=== PATIENT | female | born 1960 | race Two or more races ===

== ENCOUNTER 2017-10-11 18:20 | Emergency (ER) | payer OTHER ==
[2017-10-11] MEDS ORDERED: HALOPERIDOL 5 MG/ML IM PRN (18:30)
[2017-10-11] MEDS ORDERED: HALOPERIDOL 5 MG/ML IV ONE (18:30)
[2017-10-11 18:41] LABS: HEMATOCRIT 40.2 % (34.6-47.8); HEMOGLOBIN 13.4 g/dL (11.7-16.4); WHITE BLOOD COUNT 9.5 x10^3/uL (3.4-10)
[2017-10-11 18:54] LABS: ASPARTATE AMINO TRANSFERASE 23 U/L (15-37); BLOOD UREA NITROGEN 12 mg/dL (7-18)
[2017-10-11] MEDS ORDERED: PLEASE ENTER HEIGHT AND WEIGHT MC SCH (19:00)
[2017-10-11] MEDS ORDERED: PLEASE ENTER ALLERGIES MC SCH ×2 (19:00)
[2017-10-11 19:07] LABS: ACETAMINOPHEN < 2 mcg/mL (10-30)
[2017-10-12 00:29] VITALS: BP 104/62
== END 2017-10-12 01:38 | disposition home or self-care (01) ==
LOC: ED 10-12 01:35
DX: F10.129 Alcohol abuse with intoxication, unspecified (principal)
CPT/HCPCS: 36415; 70450; 80053; 80307; 80329; 84443; 85025; 93005; 96372; 99285; J1630; G0479; G0480